=== PATIENT | male | born 1970 | race Caucasian/White ===

== ENCOUNTER 2017-12-07 08:27 | Emergency (ER) | payer MEDICAID ==
[~2017-12-07] VITALS: Ht 177.8 cm; Wt 80.0 kg
[~2017-12-07 08:27] MED LIST: COU5T PO; DOCU-28 PO; FLUO20CA39 PO; GABA-338 PO; HYDR-569 PO; OXCA300T39 PO; TRAZ-89 PO
[2017-12-07 08:34] VITALS: BP 128/75
[2017-12-07] MEDS ORDERED: PROPARACAINE/FLUORESCEIN ophthalmic drops 5ml bottle ONE (08:41)
[2017-12-07] MEDS ORDERED: polymyxin B sulf/tmp ophth drops 10ml LEFTEYE SCH (08:50)
== END 2017-12-07 09:03 | disposition home or self-care (01) ==
LOC: ER 08:27
DX: H10.9 Unspecified conjunctivitis (principal); J44.9 Chronic obstructive pulmonary disease, unspecified; Z86.718 Personal history of other venous thrombosis and embolism; Z86.73 Personal history of transient ischemic attack (TIA), and cerebral infarction without residual deficits; F12.90 Cannabis use, unspecified, uncomplicated; Z79.01 Long term (current) use of anticoagulants; Z79.899 Other long term (current) drug therapy
CPT/HCPCS: 99282

== ENCOUNTER 2019-03-10 11:22 | Emergency (ER) | payer MEDICAID ==
[~2019-03-10] VITALS: Ht 177.8 cm; Wt 77.0 kg
[~2019-03-10 11:22] MED LIST changes: +HYDR-4383 PO; -HYDR-569 PO
[2019-03-10 11:46] VITALS: BP 115/66
[2019-03-10] MEDS ORDERED: SULF1TAB49 PO (12:17)
[2019-03-10] MEDS ORDERED: IBUP-1985 PO (12:19)
== END 2019-03-10 12:31 | disposition home or self-care (01) ==
LOC: ER 11:23
DX: J44.9 Chronic obstructive pulmonary disease, unspecified (principal); F31.9 Bipolar disorder, unspecified; F15.90 Other stimulant use, unspecified, uncomplicated; Z86.73 Personal history of transient ischemic attack (TIA), and cerebral infarction without residual deficits; Z86.69 Personal history of other diseases of the nervous system and sense organs; Z86.718 Personal history of other venous thrombosis and embolism; Z79.01 Long term (current) use of anticoagulants; Z79.2 Long term (current) use of antibiotics; Z79.899 Other long term (current) drug therapy
CPT/HCPCS: 99283

== ENCOUNTER 2019-03-13 15:46 | Inpatient (IN) | payer MEDICAID ==
[~2019-03-13] VITALS: Ht 177.8 cm; Wt 76.0 kg
[~2019-03-13 15:46] MED LIST changes: +IBUP-1985 PO; +SULF1TAB49 PO
[2019-03-13] MEDS ORDERED: normal saline 1000ML IV soln IV ONE (16:25)
[2019-03-13] MEDS ORDERED: CefTRIAXone 2gm/D5W 50ml 50 ML IV ONE (16:25)
[2019-03-13 16:48] LABS: BASOPHILS % (AUTO) 0 % (0-1); EOSINOPHILS % (AUTO) 0.1 % (0-6); HEMATOCRIT 40.4 % (42.0-52.0); HEMOGLOBIN 13.7 g/dl (14.0-17.9); LYMPHOCYTES # (AUTO) 0.5 X10'3 (1.1-4.8); LYMPHOCYTES % (AUTO) 3.5 % (21-51); MEAN CORPUSCULAR HEMOGLOBIN 31.6 PG (27.0-31.0); MEAN CORPUSCULAR HGB CONC 33.9 g/dL (33.0-36.5); MEAN CORPUSCULAR VOLUME 93.3 FL (78-98); MEAN PLATELET VOLUME 8.7 FL (7.4-10.4); MONOCYTES # (AUTO) 0.9 X10'3 (0-0.9); MONOCYTES % (AUTO) 5.7 % (2-12); NEUTROPHILS # (AUTO) 14.1 X10'3 (1.8-7.7); NEUTROPHILS % (AUTO) 90.7 % (42-75); PLATELET COUNT 254 X10'3 (140-440); RED BLOOD COUNT 4.33 X10'6 (4.70-6.10); RED CELL DISTRIBUTION WIDTH 13.7 % (11.5-14.5); WHITE BLOOD COUNT 15.5 X10'3 (4.5-11.0)
[2019-03-13 16:59] LABS: PARTIAL THROMBOPLASTIN TIME 28 SECONDS (22-32)
[2019-03-13 17:02] LABS: ALANINE AMINOTRANSFERASE 27 U/L (12-78); ALBUMIN 3.8 G/DL (3.4-5.0); ALKALINE PHOSPHATASE 78 IU/L (46-116); ANION GAP 14 (8-16); ASPARTATE AMINO TRANSFERASE 27 U/L (10-37); BILIRUBIN,TOTAL 1.4 MG/DL (0.1-1.0); BLOOD UREA NITROGEN 21 MG/DL (7-18); BUN/CREATININE RATIO 14.9 (5.4-32.0); CHLORIDE 104 MMOL/L (99-107); CREATININE 1.41 MG/DL (0.60-1.10); GLUCOSE 93 MG/DL (70-104); MAGNESIUM 1.9 MG/DL (1.5-2.4); POTASSIUM 3.4 MMOL/L (3.5-5.1); SODIUM 139 MMOL/L (135-145); TOTAL CARBON DIOXIDE 21.5 MMOL/L (24-32); TOTAL PROTEIN 7.6 G/DL (6.4-8.2); eGFR 53 ML/MIN
[2019-03-13] MEDS ORDERED: magnesium hydroxide 30ml (MOM) UD suspension PO PRN (17:40)
[2019-03-13] MEDS ORDERED: HYDROcodone/acetaminophen 5mg/325mg tablet PO PRN (17:40)
[2019-03-13] MEDS ORDERED: acetaminophen 325mg tablet PO PRN ×2 (17:40)
[2019-03-13] MEDS ORDERED: morphine 2 MG/ML inj. syringe IV PRN ×2 (17:40)
[2019-03-13] MEDS ORDERED: mag hydrox/Alum hydrox/simeth 30ml oral suspension PO PRN (17:40)
[2019-03-13] MEDS ORDERED: ondansetron/PF 4mg/2ml inj IV PRN (17:40)
[2019-03-13] MEDS ORDERED: SULF-14 PO (17:42)
[2019-03-13] MEDS ORDERED: IBUP-1985 PO (17:44)
[2019-03-13 18:10] LABS: HEMOGLOBIN A1C 5.3 % (4.5-6.2)
[2019-03-13 19:15] LABS: CLARITY,URINE CLEAR (Clear); COLOR,URINE YELLOW (Yellow); GLUCOSE, URINE NEGATIVE (Neg); KETONES,URINE 15 mg/dl (Neg); LEUKOCYTE ESTERASE ,URINE NEGATIVE (Neg); NITRITES, URINE NEGATIVE (Neg); OCCULT BLOOD,URINE NEGATIVE (Neg); PROTEIN,URINE NEGATIVE (Neg); UROBILINOGEN,URINE 0.2 E.U/dL (0.2-1.0)
[2019-03-13 19:17] LABS: UA COLLECTION TYPE CLN CATCH MIDSTREAM
[2019-03-13 19:21] LABS: URINE AMPHETAMINE SCREEN POSITIVE (Neg); URINE BARBITUATE SCREEN NEGATIVE (Neg); URINE BENZODIAZEPINES SCREEN NEGATIVE (Neg); URINE CANNABINOID SCREEN NEGATIVE (Neg); URINE COCAINE SCREEN NEGATIVE (Neg); URINE METHADONE SCREEN NEGATIVE (Neg); URINE OPIATE SCREEN NEGATIVE (Neg); URINE PHENCYCLIDINE SCREEN NEGATIVE (Neg)
--- NOTE | 2019-03-13 19:42 | NUR ---
PT NO LONGER TAKES COUMADIN, HOSPITALIST ORDERED MEDICATION BEFORE THE PT'S HOME MED REC WAS COMPLETED. I DC'D COUMADIN FROM PT'S EMAR.
[2019-03-13] MEDS: vancomycin/NS 1 GM ADD-VANTAGE 250 ML IV SCH (19:46)
[2019-03-13] MEDS ORDERED: warfarin 5mg tablet PO ONE (21:00)
--- NOTE | 2019-03-13 21:20 | NUR ---
Report received from ALEX, Audie GUTIERREZ.
[2019-03-13 21:42] VITALS: BP 101/59
[2019-03-14] MEDS: HYDROcodone/acetaminophen 10/325mg tab PO PRN ×4 (01:29→16:31)
--- NOTE | 2019-03-14 06:07 | NUR ---
Report given, questions answered and plan of care reviewed with BRENDA Veliz.
[2019-03-14 06:21] VITALS: BP 90/57
[2019-03-14 06:39] LABS: BASOPHILS % (AUTO) 0.4 % (0-1); EOSINOPHILS # (AUTO) 0.1 X10'3 (0-0.9); EOSINOPHILS % (AUTO) 1.1 % (0-6); HEMATOCRIT 36.7 % (42.0-52.0); HEMOGLOBIN 12.4 g/dl (14.0-17.9); LYMPHOCYTES # (AUTO) 1.4 X10'3 (1.1-4.8); MEAN CORPUSCULAR HEMOGLOBIN 31.6 PG (27.0-31.0); MEAN CORPUSCULAR HGB CONC 33.9 g/dL (33.0-36.5); MEAN CORPUSCULAR VOLUME 93.3 FL (78-98); MEAN PLATELET VOLUME 8.8 FL (7.4-10.4); MONOCYTES % (AUTO) 8.1 % (2-12); NEUTROPHILS # (AUTO) 9.8 X10'3 (1.8-7.7); NEUTROPHILS % (AUTO) 79.4 % (42-75); PLATELET COUNT 235 X10'3 (140-440); RED BLOOD COUNT 3.93 X10'6 (4.70-6.10); RED CELL DISTRIBUTION WIDTH 13.8 % (11.5-14.5); WHITE BLOOD COUNT 12.4 X10'3 (4.5-11.0)
[2019-03-14 06:58] LABS: ANION GAP 9 (8-16); CALCIUM 8.4 MG/DL (8.5-10.1); CHLORIDE 109 MMOL/L (99-107); CREATININE 1.16 MG/DL (0.60-1.10); POTASSIUM 3.4 MMOL/L (3.5-5.1); SODIUM 140 MMOL/L (135-145); TOTAL CARBON DIOXIDE 22.2 MMOL/L (24-32); eGFR 67 ML/MIN
[2019-03-14] MEDS: enoxaparin 40mg/0.4ml syringe SUBCUT SCH (08:00)
[2019-03-14] MEDS: vancomycin/NS 1 GM ADD-VANTAGE 250 ML IV SCH ×2 (09:07→19:44)
[2019-03-14 09:12] LABS: ALBUMIN 2.8 G/DL (3.4-5.0); BLOOD UREA NITROGEN 17 MG/DL (7-18); BUN/CREATININE RATIO 14.7 (5.4-32.0); GLUCOSE 111 MG/DL (70-104)
[2019-03-14 09:44] VITALS: BP 101/66
--- NOTE | 2019-03-14 10:59 | NUR ---
Student documentation:I have reviewed and agree with all interventions, assessments performed and documented by Brandy Osman.
[2019-03-14 11:36] VITALS: BP 94/62
[2019-03-14 18:00] VITALS: BP 104/56
--- NOTE | 2019-03-14 18:08 | NUR ---
Patient in room ORTHO 4015. I have received report from Keren GUTIERREZ and had the opportunity to ask questions and assume patient care.
--- NOTE | 2019-03-14 18:16 | NUR ---
Problems reprioritized. Patient report given, questions answered & plan of care reviewed with BRENDA Caballero.
--- NOTE | 2019-03-14 18:24 | NUR ---
Paged Dr Martin: PAGER ID: [phone] MESSAGE: #[id number] Javier Huang 1700 T 99.1 pt report feeling cold. L foot remains swollen, red, warm to touch. administered [place] 10/pain, Tylenol 650 fever at pt request. 1800 T 99.4. TED Veliz 6871.
[2019-03-14] MEDS: lactobacillus rhamnosus 10,000 MMU CELLS/CAPSULE PO SCH (19:44)
[2019-03-14] MEDS ORDERED: warfarin 5mg tablet PO ONE (21:00)
[2019-03-14] MEDS ORDERED: potassium Cl 20 mEq SR tablet PO PRN (21:30)
[2019-03-14] MEDS ORDERED: potassium CL 10mEq/100ml bag 100 ML IV PRN (21:30)
[2019-03-14] MEDS: potassium Cl 20 mEq SR tablet PO PRN (21:43)
[2019-03-14 22:00] VITALS: BP 103/61
[2019-03-15] MEDS: potassium Cl 20 mEq SR tablet PO PRN (01:54)
[2019-03-15 06:00] VITALS: BP 142/80
--- NOTE | 2019-03-15 06:34 | NUR ---
Problems reprioritized. Patient report given, questions answered & plan of care reviewed with Geri GUTIERREZ.
[2019-03-15] MEDS ORDERED: VANCOMYCIN LEVEL IV ONE (07:30)
[2019-03-15 07:31] LABS: ALBUMIN 2.7 G/DL (3.4-5.0); ANION GAP 7 (8-16); BLOOD UREA NITROGEN 10 MG/DL (7-18); BUN/CREATININE RATIO 10.3 (5.4-32.0); CALCIUM 8.2 MG/DL (8.5-10.1); CHLORIDE 104 MMOL/L (99-107); CREATININE 0.97 MG/DL (0.60-1.10); GLUCOSE 91 MG/DL (70-104); MAGNESIUM 1.7 MG/DL (1.5-2.4); SODIUM 138 MMOL/L (135-145); TOTAL CARBON DIOXIDE 27.3 MMOL/L (24-32); VANCOMYCIN,TROUGH 7.6 UG/ML (6.0-14.0); eGFR 82 ML/MIN
[2019-03-15 07:39] LABS: BASOPHILS % (AUTO) 0.4 % (0-1); EOSINOPHILS # (AUTO) 0.1 X10'3 (0-0.9); EOSINOPHILS % (AUTO) 0.8 % (0-6); HEMATOCRIT 37.1 % (42.0-52.0); HEMOGLOBIN 12.5 g/dl (14.0-17.9); LYMPHOCYTES % (AUTO) 9.5 % (21-51); MEAN CORPUSCULAR HEMOGLOBIN 31.5 PG (27.0-31.0); MEAN CORPUSCULAR HGB CONC 33.8 g/dL (33.0-36.5); MEAN CORPUSCULAR VOLUME 93.3 FL (78-98); MEAN PLATELET VOLUME 9.4 FL (7.4-10.4); MONOCYTES # (AUTO) 0.9 X10'3 (0-0.9); MONOCYTES % (AUTO) 8.3 % (2-12); NEUTROPHILS # (AUTO) 8.7 X10'3 (1.8-7.7); PLATELET COUNT 230 X10'3 (140-440); RED BLOOD COUNT 3.97 X10'6 (4.70-6.10); RED CELL DISTRIBUTION WIDTH 13.5 % (11.5-14.5); WHITE BLOOD COUNT 10.7 X10'3 (4.5-11.0)
[2019-03-15] MEDS: HYDROcodone/acetaminophen 10/325mg tab PO PRN ×2 (09:39→18:43)
[2019-03-15] MEDS: enoxaparin 40mg/0.4ml syringe SUBCUT SCH (09:40)
[2019-03-15] MEDS: lactobacillus rhamnosus 10,000 MMU CELLS/CAPSULE PO SCH ×2 (09:40→20:37)
[2019-03-15 10:00] VITALS: BP 101/65
[2019-03-15 18:00] VITALS: BP 116/75
--- NOTE | 2019-03-15 18:10 | NUR ---
Report received from Geri GUTIERREZ.
[2019-03-15] MEDS ORDERED: warfarin 7.5mg tablet PO ONE (21:00)
[2019-03-15 22:00] VITALS: BP 107/70
[2019-03-16 06:00] VITALS: BP 104/71
[2019-03-16 06:10] LABS: BASOPHILS % (AUTO) 0.6 % (0-1); EOSINOPHILS # (AUTO) 0.1 X10'3 (0-0.9); EOSINOPHILS % (AUTO) 1.7 % (0-6); HEMATOCRIT 39.1 % (42.0-52.0); HEMOGLOBIN 13.2 g/dl (14.0-17.9); LYMPHOCYTES # (AUTO) 1.1 X10'3 (1.1-4.8); LYMPHOCYTES % (AUTO) 14.7 % (21-51); MEAN CORPUSCULAR HEMOGLOBIN 31.6 PG (27.0-31.0); MEAN CORPUSCULAR HGB CONC 33.8 g/dL (33.0-36.5); MEAN CORPUSCULAR VOLUME 93.4 FL (78-98); MEAN PLATELET VOLUME 8.7 FL (7.4-10.4); MONOCYTES # (AUTO) 0.8 X10'3 (0-0.9); MONOCYTES % (AUTO) 10.8 % (2-12); NEUTROPHILS # (AUTO) 5.6 X10'3 (1.8-7.7); NEUTROPHILS % (AUTO) 72.2 % (42-75); PLATELET COUNT 256 X10'3 (140-440); RED BLOOD COUNT 4.19 X10'6 (4.70-6.10); RED CELL DISTRIBUTION WIDTH 13.4 % (11.5-14.5); WHITE BLOOD COUNT 7.8 X10'3 (4.5-11.0)
--- NOTE | 2019-03-16 06:10 | NUR ---
Patient in room ORTHO 4015. I have received report from Dilcia Lassiter and had the opportunity to ask questions and assume patient care.
--- NOTE | 2019-03-16 06:29 | NUR ---
Report given to Glida GUTIERREZ.
--- NOTE | 2019-03-16 06:30 | NUR ---
Patient in room ORTHO 4015. I have received report from Gilda GUTIERREZ and had the opportunity to ask questions and assume patient care.
--- NOTE | 2019-03-16 06:35 | NUR ---
Patient in room ORTHO 4015. I have received report from simeon GUTIERREZ and had the opportunity to ask questions and assume patient care.
[2019-03-16 06:47] LABS: ALBUMIN 2.8 G/DL (3.4-5.0); ANION GAP 6 (8-16); BLOOD UREA NITROGEN 14 MG/DL (7-18); BUN/CREATININE RATIO 12.2 (5.4-32.0); CALCIUM 8.8 MG/DL (8.5-10.1); CHLORIDE 103 MMOL/L (99-107); CREATININE 1.15 MG/DL (0.60-1.10); GLUCOSE 97 MG/DL (70-104); MAGNESIUM 1.9 MG/DL (1.5-2.4); POTASSIUM 4.2 MMOL/L (3.5-5.1); SODIUM 138 MMOL/L (135-145); TOTAL CARBON DIOXIDE 28.6 MMOL/L (24-32); eGFR 67 ML/MIN
[2019-03-16] MEDS: HYDROcodone/acetaminophen 10/325mg tab PO PRN ×2 (07:58→16:00)
[2019-03-16 08:34] VITALS: BP 113/74
[2019-03-16] MEDS: lactobacillus rhamnosus 10,000 MMU CELLS/CAPSULE PO SCH ×2 (08:42→20:41)
[2019-03-16] MEDS: enoxaparin 40mg/0.4ml syringe SUBCUT SCH (08:43)
--- NOTE | 2019-03-16 09:13 | NUR ---
Student Medication Administration: For this medication-pass time frame, all medication were reviewed, dispensed, administered and documented per hospital policy by Zhang LACEY [facility].
[2019-03-16 10:00] VITALS: BP 102/65
--- NOTE | 2019-03-16 11:47 | NUR ---
Student documentation: I have reviewed all interventions, assessments performed and documented by Mike LACEY [facility].
[2019-03-16] MEDS: ceFAZolin 1GM/D5W- ADD-VANTAGE 50 ML IV SCH ×2 (16:43→23:54)
[2019-03-16 18:00] VITALS: BP 107/71
--- NOTE | 2019-03-16 18:03 | NUR ---
Problems reprioritized. Patient report given, questions answered & plan of care reviewed with Dilcia Lassiter
[2019-03-16] MEDS ORDERED: VANCOMYCIN LEVEL IV ONE (20:30)
[2019-03-16] MEDS ORDERED: warfarin 10mg tablet PO ONE (21:00)
[2019-03-16 22:00] VITALS: BP 107/72
[2019-03-17 05:46] LABS: BASOPHILS # (AUTO) 0.1 X10'3 (0-0.2); BASOPHILS % (AUTO) 1.2 % (0-1); EOSINOPHILS # (AUTO) 0.3 X10'3 (0-0.9); EOSINOPHILS % (AUTO) 5.4 % (0-6); HEMATOCRIT 42.3 % (42.0-52.0); HEMOGLOBIN 14.3 g/dl (14.0-17.9); LYMPHOCYTES # (AUTO) 1.4 X10'3 (1.1-4.8); LYMPHOCYTES % (AUTO) 24.9 % (21-51); MEAN CORPUSCULAR HEMOGLOBIN 31.6 PG (27.0-31.0); MEAN CORPUSCULAR HGB CONC 33.8 g/dL (33.0-36.5); MEAN CORPUSCULAR VOLUME 93.5 FL (78-98); MEAN PLATELET VOLUME 8.4 FL (7.4-10.4); MONOCYTES # (AUTO) 0.8 X10'3 (0-0.9); MONOCYTES % (AUTO) 14.7 % (2-12); NEUTROPHILS % (AUTO) 53.8 % (42-75); PLATELET COUNT 303 X10'3 (140-440); RED BLOOD COUNT 4.52 X10'6 (4.70-6.10); RED CELL DISTRIBUTION WIDTH 13.3 % (11.5-14.5); WHITE BLOOD COUNT 5.6 X10'3 (4.5-11.0)
[2019-03-17 05:59] LABS: ANION GAP 6 (8-16); BLOOD UREA NITROGEN 18 MG/DL (7-18); BUN/CREATININE RATIO 16.7 (5.4-32.0); CHLORIDE 103 MMOL/L (99-107); CREATININE 1.08 MG/DL (0.60-1.10); GLUCOSE 95 MG/DL (70-104); MAGNESIUM 1.9 MG/DL (1.5-2.4); POTASSIUM 4.5 MMOL/L (3.5-5.1); SODIUM 138 MMOL/L (135-145); TOTAL CARBON DIOXIDE 29.4 MMOL/L (24-32); eGFR 72 ML/MIN
[2019-03-17 06:00] VITALS: BP 109/69
--- NOTE | 2019-03-17 06:07 | NUR ---
received report from chao medina
--- NOTE | 2019-03-17 06:14 | NUR ---
Report given Rupali GUTIERREZ.
[2019-03-17] MEDS: lactobacillus rhamnosus 10,000 MMU CELLS/CAPSULE PO SCH ×2 (06:49→19:44)
[2019-03-17] MEDS: HYDROcodone/acetaminophen 10/325mg tab PO PRN (06:50)
[2019-03-17] MEDS: enoxaparin 40mg/0.4ml syringe SUBCUT SCH (06:55)
[2019-03-17] MEDS: ceFAZolin 1GM/D5W- ADD-VANTAGE 50 ML IV SCH ×3 (06:55→23:58)
[2019-03-17 10:00] VITALS: BP 106/68
--- NOTE | 2019-03-17 11:53 | NUR ---
educated pt on showering without assistance, pt showered without asking therefore IV site and foot wound became soaked, nursing staff had to change foot bandage and continued to educate about having open areas covered when showering, continue to educate
[2019-03-17 18:00] VITALS: BP 110/74
--- NOTE | 2019-03-17 18:15 | NUR ---
gave report to carol. chao
--- NOTE | 2019-03-17 19:48 | NUR ---
patient states that he has not been taking coumadin for the past 5 years. He stated that his PCP DCd this. 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 Patient stated that he has never had a CVA.
[2019-03-17] MEDS ORDERED: warfarin 10mg tablet PO ONE ×2 (21:00)
[2019-03-17 22:06] VITALS: BP 104/74
[2019-03-18 06:00] VITALS: BP 110/69
--- NOTE | 2019-03-18 06:03 | NUR ---
Problems reprioritized. Patient report given, questions answered & plan of care reviewed with BRENDA Matias.
[2019-03-18 06:11] LABS: BASOPHILS # (AUTO) 0.1 X10'3 (0-0.2); BASOPHILS % (AUTO) 0.9 % (0-1); EOSINOPHILS # (AUTO) 0.5 X10'3 (0-0.9); EOSINOPHILS % (AUTO) 7.4 % (0-6); HEMATOCRIT 44.5 % (42.0-52.0); HEMOGLOBIN 15.3 g/dl (14.0-17.9); LYMPHOCYTES # (AUTO) 1.5 X10'3 (1.1-4.8); LYMPHOCYTES % (AUTO) 23.5 % (21-51); MEAN CORPUSCULAR HEMOGLOBIN 31.9 PG (27.0-31.0); MEAN CORPUSCULAR HGB CONC 34.4 g/dL (33.0-36.5); MEAN CORPUSCULAR VOLUME 92.6 FL (78-98); MEAN PLATELET VOLUME 8.4 FL (7.4-10.4); MONOCYTES # (AUTO) 0.7 X10'3 (0-0.9); MONOCYTES % (AUTO) 10.8 % (2-12); NEUTROPHILS # (AUTO) 3.8 X10'3 (1.8-7.7); NEUTROPHILS % (AUTO) 57.4 % (42-75); PLATELET COUNT 349 X10'3 (140-440); RED CELL DISTRIBUTION WIDTH 13.3 % (11.5-14.5); WHITE BLOOD COUNT 6.5 X10'3 (4.5-11.0)
[2019-03-18 06:22] LABS: ALBUMIN 3.1 G/DL (3.4-5.0); ANION GAP 6 (8-16); BLOOD UREA NITROGEN 18 MG/DL (7-18); BUN/CREATININE RATIO 15.1 (5.4-32.0); CHLORIDE 103 MMOL/L (99-107); CREATININE 1.19 MG/DL (0.60-1.10); GLUCOSE 94 MG/DL (70-104); MAGNESIUM 2.1 MG/DL (1.5-2.4); POTASSIUM 4.3 MMOL/L (3.5-5.1); SODIUM 137 MMOL/L (135-145); TOTAL CARBON DIOXIDE 27.9 MMOL/L (24-32); eGFR 65 ML/MIN
--- NOTE | 2019-03-18 06:30 | NUR ---
I have received patient report form Dilcia Allen RN
[2019-03-18] MEDS ORDERED: CLIN-5 PO (08:32)
[2019-03-18] MEDS: lactobacillus rhamnosus 10,000 MMU CELLS/CAPSULE PO SCH (09:15)
[2019-03-18] MEDS: enoxaparin 40mg/0.4ml syringe SUBCUT SCH (09:15)
[2019-03-18] MEDS: ceFAZolin 1GM/D5W- ADD-VANTAGE 50 ML IV SCH (09:15)
--- NOTE | 2019-03-18 10:15 | NUR ---
Patient discharged and taught about prescription for clindamycin. He was provided some opti-foam dressing and bandages for his foor wound and told to follow up with pcp and Dr. Horn. Patient left on foor-stating he was only going two blocks away.
== END 2019-03-18 10:30 | disposition home or self-care (01) | DRG 383 ==
LOC: ER 15:46 → ED HOLD 17:45 → ORTHO 4S 21:35
PROVIDERS: ADMIT Internal Medicine; ATTEND Internal Medicine
PROC: 0H9NXZZ Drainage of Left Foot Skin, External Approach (ICD-10-PCS; principal; 2019-03-17)
DX: L03.116 Cellulitis of left lower limb (principal); F17.210 Nicotine dependence, cigarettes, uncomplicated; L03.115 Cellulitis of right lower limb; B95.61 Methicillin susceptible Staphylococcus aureus infection as the cause of diseases classified elsewhere; J44.9 Chronic obstructive pulmonary disease, unspecified; L02.612 Cutaneous abscess of left foot; Z86.73 Personal history of transient ischemic attack (TIA), and cerebral infarction without residual deficits
CPT/HCPCS: 36415; 71045; 73630; 73718; 80048; 80053; 80202; 80305; 81003; 83036; 83605; 83735; 83880; 84145; 85025; 85610; 85730; 87040; 87070; 87077; 87081; 87186; 93005; 96374; 99285; G0378; J0690; J0696; J1650; J3370